=== PATIENT | female | born 1965 | race Caucasian/White ===

== ENCOUNTER → 2016-06-03 | Outpatient (CLI) | payer BC ==
[~2016-06-03] MED LIST: NO MEDS
--- NOTE | 2016-06-04 12:17 | MAMMOGRAPHY REPORT ---
BILATERAL DIGITAL SCREENING MAMMOGRAM TOMOSYNTHESIS WITH CAD: 06/03/2016 CLINICAL HISTORY: Routine screening. Patient has no complaints. TECHNIQUE: Breast tomosynthesis in addition to standard 2D mammography was performed. Current study was also evaluated with a Computer Aided Detection (CAD) system. COMPARISON: Comparison is made to exams dated: 11/21/2014 mammogram, 11/09/2012 mammogram, 11/15/2013 m ammogram, 11/15/2011 ultrasound, 10/29/2010 mammogram, and 10/20/2009 mammogram - [facility]. BREAST COMPOSITION: There are scattered areas of fibroglandular density in both breasts. FINDINGS: The parenchymal pattern is unchanged. No developing mass, architectural distortion or clu ster of suspicious microcalcifications is seen in either breast. IMPRESSION: ACR BI-RADS CATEGORY 2: BENIGN There is no mammographic evidence of malignancy. A 1 year screening mammogram is recommended. The p atient will receive written notification of the results. Approximately 10% of breast cancers are not detected with mammography. A negative mammographic repor t should not delay biopsy if a clinically suggestive mass is present. Roma Christian M.D. ay/:06/03/2016 21:20:21 Mica Machine Operator: Mago SANTANA(Marvel)(M), [facility] letter sent: Normal 1/2 BI-RADS Code: ACR BI-RADS Category 2: Benign
== END | disposition home or self-care (01) ==
LOC: C.MAMM 07:31
PROVIDERS: ATTEND Obstetrics & Gynecology
DX: Z12.31 Encounter for screening mammogram for malignant neoplasm of breast (principal)

== ENCOUNTER → 2016-06-03 | Outpatient (CLI) | payer BC ==
--- NOTE | 2016-06-03 09:23 | DIAGNOSTIC IMAGING REPORT ---
LEFT FEMUR 2 VIEWS CLINICAL HISTORY: Left leg pain and COMPARISON: None. DISCUSSION: No fractures are visualized. There are no areas of periostitis. The joint space left hip appears well-preserved for age. IMPRESSION: No fractures identified. No evidence of pathologic periostitis. Electronically signed by: Loyd Al M.D. 06/03/2016 9:22 AM Dictated Date/Time: 06/03/2016 9:21 AM
== END | disposition home or self-care (01) ==
LOC: C.RDSM 09:00
PROVIDERS: ATTEND Internal Medicine
DX: M79.605 Pain in left leg (principal)

== ENCOUNTER → 2016-06-05 | Outpatient (CLI) | payer BC ==
[2016-06-05 16:51] LABS: BASO % 0.4 %; BASO ABS # 0.03 K/uL (0-0.2); COMPLETE YES; EOS % 0.9 %; HEMATOCRIT 40.7 % (37-47); IG% 0.1 %; LYMPH % 23.8 %; LYMPH ABS # 1.93 K/uL (1.2-3.4); MEAN CELL VOLUME 99.5 fL (80-100); MEAN CORPUSCULAR HEMOGLOBIN 32.8 pg (25-34); MEAN CORPUSCULAR HGB CONC 32.9 g/dl (32-36); MEAN PLATELET VOLUME 10.9 fL (7.4-10.4); MONO % 6.5 %; NEUT % 68.3 %; PLATELET COUNT 207 K/uL (130-400); RED BLOOD COUNT 4.09 M/uL (4.2-5.4)
[2016-06-05 16:59] LABS: BLOOD UREA NITROGEN 21 mg/dl (7-18); BUN/CREATININE RATIO 22.9 (10-20); CALCIUM 8.8 mg/dl (8.5-10.1); CARBON DIOXIDE 30 mmol/L (21-32); CHLORIDE 104 mmol/L (98-107); CREATININE 0.91 mg/dl (0.60-1.20); GLUCOSE 85 mg/dl (70-99); POTASSIUM 4.2 mmol/L (3.5-5.1); SODIUM 140 mmol/L (136-145)
[2016-06-05 17:04] LABS: FERRITIN 40.4 ng/ml (8.0-388.0)
== END | disposition home or self-care (01) ==
LOC: C.LAB1850 15:16
PROVIDERS: ATTEND Internal Medicine
DX: D64.9 Anemia, unspecified (principal)

== ENCOUNTER → 2016-06-05 | Outpatient (CLI) | payer BC ==
--- NOTE | 2016-06-05 15:44 | DIAGNOSTIC IMAGING REPORT ---
MRI THE LEFT THIGH NO CONTRAST CLINICAL HISTORY: Left thigh pain. Unresponsive to rest and rehabilitation. COMPARISON STUDY: Conventional radiographic evaluation the left femur dated 06/03/2016 FINDINGS: Imaging was performed in the sagittal axial and coronal planes. Within the lower pelvis, there are multiple T2 hypointense masses which displaces the bladder. These likely represent large uterine fibroids. The largest measures 5 cm. Correlation with a pelvic ultrasound is recommended. There are no areas of marrow replacement to indicate a neoplastic process. No intramuscular masses are visualized on this noncontrast examination. There are no areas of pathologic muscular edema to indicate a muscular tear or strain. There is very subtle increased T2 signal within the femoral marrow with an equivocal halo of increased T2 signal surrounding the femoral cortex. The findings are likely stress-related basis. IMPRESSION: 1. Very subtle stress related changes within the femoral shaft 2. Multiple large pelvic masses with bladder displacement. On a statistical basis this represents a fibroid uterus. Ultrasound correlation should be considered for confirmation Electronically signed by: Loyd Al M.D. 06/05/2016 3:43 PM Dictated Date/Time: 06/05/2016 3:32 PM
== END | disposition home or self-care (01) ==
LOC: C.MRI 13:57
PROVIDERS: ATTEND Internal Medicine
DX: M79.605 Pain in left leg (principal); R93.8 Abnormal findings on diagnostic imaging of other specified body structures

== ENCOUNTER → 2016-06-25 | Outpatient (CLI) | payer BC | END | disposition home or self-care (01) | LOC: C.MAMM 15:12 | PROVIDERS: ATTEND Obstetrics & Gynecology | DX: M79.605 Pain in left leg (principal); M85.88 Other specified disorders of bone density and structure, other site ==

== ENCOUNTER → 2016-07-01 | Outpatient (CLI) | payer BC | END | disposition home or self-care (01) | LOC: C.PAPS 14:42 | PROVIDERS: ATTEND Obstetrics & Gynecology | DX: Z01.419 Encounter for gynecological examination (general) (routine) without abnormal findings (principal) ==

== ENCOUNTER → 2017-06-09 | Outpatient (CLI) | payer OTHER ==
--- NOTE | 2017-06-10 07:41 | MAMMOGRAPHY REPORT ---
BILATERAL DIGITAL SCREENING MAMMOGRAM TOMOSYNTHESIS WITH CAD: 06/09/2017 CLINICAL HISTORY: Routine screening. Patient has no complaints. TECHNIQUE: Breast tomosynthesis in addition to standard 2D mammography was performed. Current study was also evaluated with a Computer Aided Detection (CAD) system. COMPARISON: Comparison is made to exams dated: 06/03/2016 mammogram, 11/21/2014 mammogram, 11/15/2013 ma mmogram, 11/09/2012 mammogram, 11/15/2011 ultrasound, and 11/15/2011 mammogram - [facility]ter. BREAST COMPOSITION: There are scattered areas of fibroglandular density in both breasts. FINDINGS: The parenchymal pattern is unchanged. No developing mass, architectural distortion or clus ter of suspicious microcalcifications is seen in either breast. IMPRESSION: ACR BI-RADS CATEGORY 2: BENIGN There is no mammographic evidence of malignancy. A 1 year screening mammogram is recommended. The pa tient will receive written notification of the results. Approximately 10% of breast cancers are not detected with mammography. A negative mammographic report should not delay biopsy if a clinically suggestive mass is present. Roma Christian M.D. ay/:06/09/2017 08:54:29 Top Collar Maker: Vinita SANTANA(Marvel)(Rodolfo), [facility] letter sent: Normal 1/2 BI-RADS Code: ACR BI-RADS Category 2: Benign
== END | disposition home or self-care (01) ==
LOC: C.MAMM 07:58
PROVIDERS: ATTEND Obstetrics & Gynecology
DX: Z12.31 Encounter for screening mammogram for malignant neoplasm of breast (principal)